=== PATIENT | male | born 1970 | race Caucasian/White ===

== ENCOUNTER 2020-07-06 16:25 | Observation (INO) | payer BC, SELFPAY ==
[2020-07-05 13:42] VITALS: BMI 33.7
[2020-07-06] VITALS (19 sets, daily range): BP systolic 105–160; BP diastolic 69–102; PULSE 52–77; RESP 10–18; TEMP 36.2–36.7; O2SAT 93–100
--- NOTE | 2020-07-06 | SCC_ITS ---
Procedure Done: 1. Removal of Deep hardware from hip 2. Right CHARMAINE 36.8 seconds of fluoroscopic guidance, for a cumulative dose of 16.35 mGy, was provided to Dr. Swan by the radiology department. C-arm images of the RIGHT hip were saved for the patient's permanent record. [facility]
--- NOTE | 2020-07-06 | XR_ITS ---
WS: [id number] C-ARM RADIOGRAPHS RIGHT HIP; 2 IMAGES HISTORY: [facility] PICS, OR COMPARISON: 07/06/2020 Intraoperative imaging during RIGHT hip arthroplasty and acetabular repair. Acetabular cup multiple s crews has been placed. RIGHT femoral head replacement also noted. XR/XR hip RT 1V wo/[place] [id number] IMPRESSION: Status post RIGHT femoral head replacement and acetabular repair.
[2020-07-06] MEDS: sodium chloride 0.9% 1,000 ML 30 ML IV (10:52)
--- NOTE | 2020-07-06 11:26 | ANES.PREANE2 ---
Pre-Anesthetic Assessment Pre-Anesthetic Assessment: Height/Weight: Height 1.78 m Weight 106.594 kg Temp Pulse Resp BP Pulse Ox 97.7 F 64 18 158/95 99 07/06/20 10:32 07/06/20 10:32 07/06/20 10:32 07/06/20 10:32 07/06/20 10:32 Preop Diagnosis: Right hip Traumatic osteoarthritis Proposed Procedure: Operation Date: 07/06/20 12:00 Proposed Procedures p Hardware Removal Hip Screw 49509 T84.84XA(Right) - Poncho Swan DO s Conversion of Total Hip Arthroplasty 11542 M87.051(Right) - Poncho Swan DO Familial anesthetic complications: none reported. Last intake: Intake Last Liquid Date 07/05/20 Last Solid Date 07/05/20 Social: Social History: Alcohol and No tobacco Exam: Pre-Anes Outpt Exam: alert, oriented x 3 and clear to auscultation bilaterally Airway: Submandibular: WNL Cervical ROM: WNL MP: 1 Dentition: Full History/ROS: No significant history except as noted Pulmonary: Pulmonary: None reported CV/HEM: CV/HEM: Afib : : None reported Hepatic: Hepatic: None reported GI: GI: None reported Metabolic: Metabolic: None reported Musc/skel: Musc/skel: Lower Back Pain Neuropsych: Neuropsych: None reported Anesthetic Plan: ASA status: 3 Anesthesia: Anesthesia Evaluation and General Risk of > 500 ml blood loss (7ml/kg in children): No Meds/Allergies Current Medications: Current Medications Generic Name Dose Route Start Last Admin Trade Name Freq PRN Reason Stop Dose Admin Sodium Chloride 1,000 mls @ 30 ml s/hr 07/06/20 10:30 07/06/20 10:52 Sodium Chloride 0.9% IV 07/07/20 10:29 30 mls/hr .Q24H LISANDRO Administration Data Anesthesia Cardiac Studies: No Data to Display
--- NOTE | 2020-07-06 11:38 | W.PM.OPSUD ---
Surgery/Procedure H&P Update DATE OF PROCEDURE: July 06, 2020 DATE H&P PERFORMED: 06/26/20 H&P UPDATE INFORMATION: I have reviewed H&P completed within last 30 days PREOP DIAGNOSIS: Right hip Traumatic osteoarthritis PLANNED PROCEDURE: Operation Date: 07/06/20 12:00 Proposed Procedures p Hardware Removal Hip Screw 37521 T84.84XA(Right) - DO nereida Westbrook Conversion of Total Hip Arthroplasty 05235 M87.051(Right) - Poncho Swan DO
[2020-07-06 12:37] LABS: Hematocrit 43.9 % (42.0-52.0); Hemoglobin 14.2 g/dL (11.7-16.6)
[2020-07-06] MEDS: ceFAZolin 1,000 mg SDV 1000 MG (13:20)
--- NOTE | 2020-07-06 14:49 | SUR.OPER ---
updated of surgical status.
--- NOTE | 2020-07-06 15:36 | SUR.OPER ---
updated of surgical status.
[2020-07-06 15:55] LABS: Hematocrit 36.3 % (42.0-52.0); Hemoglobin 12.1 g/dL (11.7-16.6)
--- NOTE | 2020-07-06 16:14 | XRR_ITS ---
PROCEDURE INFORMATION: Exam: XR Right Hip with Pelvis when Performed Exam date and time: 07/06/2020 4:23 PM Age: 49 years old Clinical indication: Device placement; Other: Post op; Prior surgery; Surgery date: Post-operative (0-2 days) TECHNIQUE: Imaging protocol: XR Right hip with pelvis when performed. Views: 1 view. COMPARISON: No relevant prior studies available. FINDINGS: Bones/joints: Surgical changes of a right hip arthroplasty. Surgical plates fixating the right acetabulum. Alignment is unremarkable. No displaced fracture. Moderate severity left hip joint osteoarthritis. Pelvic ring intact. Soft tissues: Soft tissue gas lateral to the right hip joint. Skin delano lateral to the right hip joint. XR/XR hip RT 1V wo/w pel [id number] IMPRESSION: Unremarkable postoperative appearance of the right hip arthroplasty and the acetabular surgical fixation.
--- NOTE | 2020-07-06 16:28 | PM.OP ---
Operative Report Date of procedure: July 06, 2020 Pre-op Diagnosis: Right hip Traumatic osteoarthritis Post-op diagnosis: same Procedure Done: 1. Removal of Deep hardware from hip 2. Right CHARMAINE Surgeon: Poncho Swan Anesthesia: General Estimated blood loss (mL): 750 Disposition: PACU Procedure: 1. Removal of Deep hardware from hip 2. Right CHARMAINE Patient was brought to the operative suite placed in the lateral decubitus position after undergoing anesthesia. Patient was then prepped and draped in normal sterile fashion. Skin incision made using previous skin incision. The IT band was split. Retractors were placed and then the posterior capsule and external rotators were taken off the posterior part of the femur. The head was then cut. Retractors were inserted Protopic ossification was removed from on top of the plates. The plates were identified screws were removed from the superior part of the plate. The 6 5 partially-threaded cancellous screw was removed as well. The most lateral plate was then cut inferiorly so that I have to dissect around the sciatic nerve. And these distal screws were not interfering with the cup. Once all the screws were removed that would interfere with reaming of the acetabulum attention was then brought to ream the acetabulum Wounds were irrigated prior to this the edges of the acetabulum were exposed using Bovie and Lizama and curettes and rongeur. Once all the edges were exposed the fovea was exposed as well. And then the acetabulum was medialized to the level of the fovea. And then sequential reaming was done to a 56 cup size. Once the acetabulum was reamed then it was trialed about to be adequate. Then the [place] acetabular cup was placed. A screw was placed. And the version was checked with C arm. [place] to be in adequate position. The final shell polywas then inserted into the acetabulum cup. Attention was then brought to the femur. The 2 screws were placed into the greater trochanter was then removed. And then attention was brought to the femur the box maker paperboard was used followed by the canal finder followed by broaches. Canal was broached to 5. I then trialed it. The final implant that was used was a 132 degree #5 stem from [place]. With a 36 mm head. In neutral length. This was all trialed prior and then the final was inserted. Again AP x-ray was taken and found to be in adequate position. Patient was stable in all ranges of motion. The wounds were then irrigated and closed the capsule was partially closed with Vicryl and the IT band closed with strata fix skin was closed with strata fix and delano. Sterile dressings were applied and patient was transferred to the PACU in stable condition.
--- NOTE | 2020-07-06 16:31 | ANE.PACU2 ---
Inpatient post-anesthesia follow up: Airway intact: Yes Vital signs: Temperature 97.7 F Pulse Rate 64 Respiratory Rate 18 Blood Pressure 158/95 Pulse Oximetry 99 Oxygen Delivery Me thod Room Air Oxygen Flow Rate Fraction of Inspir ed Oxygen Hydration adequate: Yes Nausea and vomiting: No Pain level: 2 Additional Comments: Sedated
--- NOTE | 2020-07-06 16:42 | SUR.PHASEI ---
1642 PT HAS SENSATION/MOVEMENT BILATERAL LOWER EXTREMITIES, R. PEDAL PULSE PALPATED, CAP REFILL <3 SEC
[2020-07-06] MEDS: fentaNYL 50 mcg/mL INJ 2mL IVP ×2 (16:45→16:50)
[2020-07-06] MEDS: HYDROcodone-acetaminophen 5-325 mg Tablet PO (18:28)
[2020-07-06] MEDS: flecainide 100 mg Tablet PO (20:15)
[2020-07-07] VITALS (7 sets, daily range): BP systolic 114–147; BP diastolic 75–97; PULSE 74–96; RESP 17–19; TEMP 36.6–37.2; O2SAT 94–99
[2020-07-07] MEDS: HYDROcodone-acetaminophen 5-325 mg Tablet PO ×4 (04:52→17:19)
[2020-07-07] MEDS: enoxaparin 40 mg/0.4 mL Syringe SUBCUT (04:53)
[2020-07-07 07:22] LABS: Basophils % 0.1 %; Hematocrit 36.6 % (42.0-52.0); Lymphocytes % 9.9 %; Mean Corpuscular HGB Conc 32.8 g/dL (30.0-36.0); Mean Corpuscular Hemoglobin 30.1 pg (28.0-34.0); Mean Corpuscular Volume 91.7 fL (80-94); Mean Platelet Volume 10.3 fL (7.4-10.4); Monocytes # 1.1 10^3/uL (0.2-0.9); Neutrophils # 7.94 10^3/uL (1.8-7.7); Neutrophils % 78.7 %; Nucleated Red Blood Cells % 0 %; Platelet Count 218 10^3/cmm (130-400); Red Blood Count 3.99 10^6/uL (4.1-5.3); Red Cell Distribution Width 13.1 % (12.1-15.1); White Blood Count 10.1 10^3/uL (4.0-10.0)
[2020-07-07 07:35] LABS: Alanine Aminotransferase 13 U/L (0-41); Albumin Level 3.5 g/dL (3.5-5.2); Alkaline Phosphatase 61 IU/L (40-130); Anion Gap 11.1 (5-19); Aspartate Amino Transferase 25 U/L (0-40); Blood Urea Nitrogen 12 mg/dL (6-20); Calcium 8.6 mg/dL (8.5-10.5); Carbon Dioxide 26 mmol/L (22-29); Chloride 103 mmol/L (98-107); Globulin 2.7 g/dL (1.3-4.6); Glomerular Filtration Rate 102.7 mL/min (90-130); Glucose 119 mg/dL (65-115); Osmolality Calculated 283 mOsm/kg (285-295); Potassium 4.1 mmol/L (3.5-5.1); Sodium 136 mmol/L (136-145); Total Bilirubin 0.5 mg/dL (0.15-1.2); Total Protein 6.2 g/dL (6.6-8.7)
[2020-07-07] MEDS: cetirizine 10 mg Tablet PO (09:07)
[2020-07-07] MEDS: flecainide 100 mg Tablet PO ×2 (09:07→22:03)
[2020-07-07] MEDS: multivitamin therapeutic Tablet 1 TAB PO (09:07)
[2020-07-07] MEDS: aspirin 81 mg EC Tablet PO (09:08)
[2020-07-07] MEDS: cholecalciferol (vitamin D3) 1,000 unit Tablet 1000 UNIT PO (09:15)
--- NOTE | 2020-07-07 10:04 | P.PN_ITS ---
Subjective Subjective: Interval history: Patient is postop day #1 from a right total hip arthroplasty. His pain is improving he had significant pain throughout the night. Vitals/I&O/Wt Last Vital Signs Temp 98.4 F 07/07/20 07:59 Pulse 82 07/07/20 07:59 Resp 18 07/07/20 07:59 BP 126/88 07/07/20 07:59 Pulse Ox 94 07/07/20 07:59 07/06/20 07/07/20 07/07/20 22:59 06:59 14:59 Intake Total 590 / 1640 1610 / 3250 240 / 240 Output Total 950 / 950 650 / 1600 Balance -360 / 690 960 / 1650 240 / 240 Weight last 48 hrs Weight 235 lb Physical Exam Narrative: EXAM NARRATIVE: Patient had 5-5 strength in bilateral lower extremities. Sensation is intact. Patient is having significant pain over his hip. Dressing is dry. Urinary Catheter Management^: Mcdonald: Cath Placed During This Visit: yes, but has since been removed by the nurse Urinary Catheter Date of Insertion: 07/06/20 Urinary Catheter Time of Insertion: 12:35 Date Urinary Catheter Removed: 07/06/20 Time Urinary Catheter Discontinued: 16:10 Data : 07/07/20 05:58 07/07/20 05:58 A&P Additional A&P Information Patient is postop day #1 right total hip arthroplasty. Plan is to have posterior hip precautions. DVT prophylaxis is Lovenox. 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
--- NOTE | 2020-07-07 13:22 | PC.CHAP ---
Pastoral Care Encounter/Spiritual Assessment Type of Contact [] Declined band director visit [] Patient/Family/Request visit [] Outpatient visit [] Follow-up visit [] Physician referral [] Code/Alert [X] Routine visit [] Staff referral [] Actively dying [] Patient sleeping [] Family support [] [] Out of room [] Palliative care [] [] Receiving care in room [] Pre-surgical visit [] Trauma [] Long length of stay [] ICU visit [] Other: Relational/Emotional Strength [] Patient feels connected with others/family/visitors/staff [] Distress [] Loneliness/isolation [] Abandonment Spirituality of Patient [] Person of Chanel [] Attends Hindu of their Chanel [] Believes in Prayer [] Reads Bible or Mormon materials [] There are Spiritual issues to be addressed Director Advertising Interventions [] Prayer [] Active listening [] Non-anxious presence [] Spiritual/emotional support [] Crisis/trauma care [] Spiritual counseling [] Bereavement support [] Provided bereavement packet [] Provided Bible/devotional materials [] Provided toy/stuffed animal, coloring book to patient or family member [] Provided Communion [] Anointing/[place] [] Salvation [] Completed spiritual assessment [] Other: Impact on Illness or Injury [] Angry [] Fearful [] Anxious [] Often cries [] Exhaustion [] Unable to work [] Unable to attend church [] Unable to walk/stand [] Unable to read [] Unable to drive [] Unable to eat/drink [] Unable to sleep [] Unable to be with family [] Patient intubated [] Other: Summary Time spent with patient
--- NOTE | 2020-07-07 18:39 | PC.NURSE ---
throughout the course of the shift the patient has needed his PRN hydrocodone every 4 hours to treat his pain. patient states that his pain comes on real fast in the last hour before it's due again. patient has done well today in regards to adjusting to his surgical hip. he was up for breakfast in his chair and stayed up till after lunch. He has ambulated to the bathroom and walked within his room with his walker.
[2020-07-07] MEDS: metoprolol succinate ER (24 HR) 100 mg Tablet 200 MG PO (22:06)
[2020-07-08 04:00] VITALS: BP 105/70; PULSE 77; RESP 17; TEMP 37.2; O2SAT 98
[2020-07-08] MEDS: enoxaparin 40 mg/0.4 mL Syringe SUBCUT (05:02)
[2020-07-08] MEDS: HYDROcodone-acetaminophen 5-325 mg Tablet PO ×2 (05:02→14:49)
--- NOTE | 2020-07-08 05:10 | PC.NURSE ---
This nurse provided patient education on self administration of subcutaneous Lovenox injection, Patient responded with verbal understanding and teach back. Patient performed lovenox administration on self.
[2020-07-08 07:47] VITALS: BP 107/72; PULSE 71; RESP 18; TEMP 36.8; O2SAT 96
[2020-07-08] MEDS: cetirizine 10 mg Tablet PO (09:00)
[2020-07-08] MEDS: flecainide 100 mg Tablet PO ×2 (09:00→20:59)
[2020-07-08] MEDS: multivitamin therapeutic Tablet 1 TAB PO (09:01)
[2020-07-08] MEDS: cholecalciferol (vitamin D3) 1,000 unit Tablet 1000 UNIT PO (09:01)
[2020-07-08] MEDS: aspirin 81 mg EC Tablet PO (09:01)
--- NOTE | 2020-07-08 09:21 | P.PN_ITS ---
Subjective Subjective: Interval history: Patient improved from yesterday. She just was up with physical therapy able to do stairs. Vitals/I&O/Wt Last Vital Signs Temp 98.2 F 07/08/20 07:47 Pulse 71 07/08/20 07:47 Resp 18 07/08/20 07:47 BP 107/72 07/08/20 07:47 Pulse Ox 96 07/08/20 07:47 07/07/20 07/08/20 07/08/20 22:59 06:59 14:59 Intake Total 360 / 890 120 / 1010 Balance 360 / 890 120 / 1010 Physical Exam Narrative: EXAM NARRATIVE: Patient has about a 5 strength wound is clean dry and intact. Urinary Catheter Management^: Mcdonald: Cath Placed During This Visit: yes, but has since been removed by the nurse Urinary Catheter Date of Insertion: 07/06/20 Urinary Catheter Time of Insertion: 12:35 Date Urinary Catheter Removed: 07/06/20 Time Urinary Catheter Discontinued: 16:10 Data : 07/07/20 05:58 07/07/20 05:58 A&P Additional A&P Information Postop day #2 right total hip revision with hardware removal. Plan is to discharge him tomorrow. He is weight-bear as tolerated. He will be discharged on Lovenox. Attestations Medical Necessity Statement*: Patient has a 5-hour drive back to [place]. Coordinating his ride requires an additional stay tonight. 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
[2020-07-08 11:29] VITALS: BP 134/78; PULSE 84; RESP 18; TEMP 37.4; O2SAT 97
[2020-07-08 15:15] VITALS: BP 116/73; PULSE 82; RESP 18; TEMP 37.9; O2SAT 97
--- NOTE | 2020-07-08 18:15 | PC.NURSE ---
pt reported little to no pain today. ambulated with physical therapy. was up to chair today. pt currently resting in bed and has ice on hip.
[2020-07-08 19:33] VITALS: BP 124/83; PULSE 92; RESP 17; TEMP 36.9; O2SAT 98
[2020-07-08] MEDS: metoprolol succinate ER (24 HR) 100 mg Tablet 200 MG PO (20:59)
[2020-07-09] VITALS: BP 105/67; PULSE 74; RESP 18; TEMP 36.8; O2SAT 97
[2020-07-09 04:00] VITALS: BP 125/81; PULSE 78; RESP 20; TEMP 37.1; O2SAT 96
[2020-07-09] MEDS: enoxaparin 40 mg/0.4 mL Syringe SUBCUT (04:20)
--- NOTE | 2020-07-09 07:07 | PM.DCS ---
Discharge Providers Date of Admission: 07/06/20 16:25 Date of Discharge: July 09, 2020 Attending Provider at Admission: Poncho Swan DO Attending Provider at Discharge: Poncho Swan DO Reason for Visit Reason for Visit: Right hip avascular necrosis Hospital Course Hospital Course Patient was admitted on 07/06/2020. Patient had a right total hip arthroplasty and hardware removal. Patient had a traumatic acetabular fracture. Which was treated 2 years ago. He went on to develop AVN and traumatic arthritis. He was taken to the OR on 07/06/2020 to remove this hardware and do a total hip arthroplasty on him. Patient tolerated procedure well he had 750 cc of blood loss did not require any transfusion. His last hemoglobin was 12. He did have an episode of bleeding on 07/08/2020. He will be discharged on 07/09/2020. I will prescribe aspirin full-strength for DVT prophylaxis. He will be given indomethacin for heterotopic ossification prophylaxis. And [place] for pain control. He will follow-up in the clinic in 2 weeks. He has a 5-hour drive home. I told him to stop frequently to get up move around. Physical Exam Urinary Catheter Management^: Mcdonald: Cath Placed During This Visit: yes, but has since been removed by the nurse Urinary Catheter Date of Insertion: 07/06/20 Urinary Catheter Time of Insertion: 12:35 Date Urinary Catheter Removed: 07/06/20 Time Urinary Catheter Discontinued: 16:10 Discharge Data Data Completed and Pending: Completed Studies During Hospitalization Category Date Time Status XR hip RT 1V wo/w pel [id number] Routine Exams 07/06/20 16:14 Completed Pending at discharge Category Date Time Status C-arm Fluoroscopy 16643 Routine Exams 07/06/20 10:26 Taken PRBC [Leukocyte R educed RBC] Routin e Lab 07/06/20 12:32 Results Type and Screen R outine Lab 07/06/20 12:32 Results Vitals: Last Vital Signs Temp 98.8 F 07/09/20 04:00 Pulse 78 07/09/20 04:00 Resp 20 H 07/09/20 04:00 BP 125/81 07/09/20 04:00 Pulse Ox 96 07/09/20 04:00 Discharge Plan Discharge Patient Disposition: Home Condition: Stable Prescriptions: New indomethacin 25 mg Capsule 25 mg PO TID 42 Days Qty: 126 RF: 0 aspirin 325 mg tablet 325 mg PO DAILY 42 Days RF: 0 hydrocodone-acetaminophen 5-325 mg tablet 1 - 2 tab PO .Q4-6H Qty: 40 RF: 0 Continued cholecalciferol (vitamin D3) 25 mcg (1,000 unit) capsule 25 mcg PO DAILY RF: 0 calcium carbonate [Calcium 600] 600 mg calcium (1,500 mg) tablet 600 mg PO BID RF: 0 metoprolol succinate 200 mg tablet extended release 24 hr 200 mg PO DAILY RF: 0 flecainide 100 mg tablet 100 mg PO Q12H RF: 0 cetirizine 10 mg capsule 10 mg PO DAILY RF: 0 multivitamin Capsule 1 cap PO DAILY RF: 0 Discontinued aspirin 81 mg tablet,delayed release (DR/EC) 81 mg PO DAILY RF: 0 Discharge Orders: Discharge Order (Routine); Ordered 07/09/20 Ordered By: Poncho Swan Discharge Diet: Advance as tolerated Discharge Activity: Limit activity as instructed Activity Restrictions/Additional Instructions: You are being discharged from the hospital today during which time you have been under the care of Dr Swan. You had a AVN and traumatic arthritis of the right hip. You were treated for this injury with total hip arthroplasty and removal of hardware. You may resume you normal diet (including any special diets as directed by your primary doctor) as well as your home medications. You should follow up with you primary doctor if you have any questions regarding medication you took prior to your stay in the hospital. You may take your pain medication as prescribed. After the first few days, take your pain medication as needed. Do not drive or drink alcohol while taking your pain medication. Your injury may increase your risk of developing a blood clot,or DVT, in your arm or leg. This could potentially dislodge and travel to your lungs and become a life threatening condition called apulmonary embolus,or PE. You have been prescribed aspirin to be taken to prevent this. Frequent movement of the legs will also help prevent this from occurring. If you develop any new or worsening cough, chestpain, bloody sputum or shortness of breath, call 911 or go to the EmergencyRoom. You were also prescribed indomethacin. This can also decrease the risk of blood clots but can also increase the risk of bleeding. The reason this was prescribed was for the treatment of heterotopic ossification. Which occurs in these traumatic type injuries. The indomethacin will be taken to help decrease the risk of this occurring. Always keep your surgical incision/dressing clean and dry. If you experience increasing pain at your incision site, redness, swelling, increasing discharge, foul odors, or fevers (greater than 100.4), night sweats or chills you should call the office at the above number. If you feel this is an emergency you should be evaluated in the Emergency Department of a nearby hospital. Orthopedic Patient Instructions Summary: Weight Bearing: As tolerated Activity: As tolerated with posterior hip precautions. Diet: Regular. Keep dressing clean and dry. Anticoagulation: Full-strength aspirin. Lovenox was not prescribed because of bleeding that occurred in the hospital and the fact that you are on indomethacin and aspirin. Pain Medication: Take only as needed. Ice, rest and elevation will be of great benefit. Please plan to follow-up wlshelbie Swan in 2 weeks. You will need to call the clinic [phone] to schedule this visit. Thank you far allowing me to participate in your care. Do not hesitate to call the office with any questions or concerns. 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
[2020-07-09 08:00] VITALS: BP 123/84; PULSE 85; RESP 18; TEMP 37; O2SAT 99
[2020-07-09] MEDS: multivitamin therapeutic Tablet 1 TAB PO (08:50)
[2020-07-09] MEDS: cholecalciferol (vitamin D3) 1,000 unit Tablet 1000 UNIT PO (08:50)
[2020-07-09] MEDS: HYDROcodone-acetaminophen 5-325 mg Tablet PO (08:50)
[2020-07-09] MEDS: aspirin 81 mg EC Tablet PO (08:51)
[2020-07-09] MEDS: cetirizine 10 mg Tablet PO (08:51)
[2020-07-09 11:07] VITALS: BP 114/75; PULSE 81; RESP 18; TEMP 36.9; O2SAT 98
[2020-07-09 12:24] VITALS: BP 114/75; PULSE 81; RESP 18; TEMP 36.9; O2SAT 98
== END 2020-07-09 12:25 | disposition home or self-care (01) ==
LOC: MEDSURG 07-08 09:18
PROVIDERS: Admitting Provider Orthopaedic Surgery; Visit Provider Orthopaedic Surgery
PROC: (CPT 20680; principal; 2020-07-06 12:00)
PROC: (CPT 27130; 2020-07-06 12:00)
DX: M87.051 Idiopathic aseptic necrosis of right femur (principal); T84.84XA Pain due to internal orthopedic prosthetic devices, implants and grafts, initial encounter; I48.91 Unspecified atrial fibrillation
CPT/HCPCS: 20680; 27130; 73501; 76000; 80053; 85014; 85018; 85025; 86850; 86900; 86920; 96372; 97110; 97116; 97162; 97166; 97530; 97535; C1713; C1776; G0378; J0690; J1100; J1170; J1650; J2250; J2405; J2550; J2704; J2710; J3010; J3490; J7030

== ENCOUNTER → 2020-08-30 10:35 | Outpatient (BNVA) | payer BC, SELFPAY | PROVIDERS: Visit Provider Orthopaedic Surgery | DX: Z48.89 Encounter for other specified surgical aftercare (principal) | CPT/HCPCS: 73502 ==